=== PATIENT | female | born 1980 | race Caucasian/White ===

== ENCOUNTER → 2019-12-10 | Outpatient (CLI) | payer BC | LOC: MC.RAD 09:20 | DX: Z12.31 Encounter for screening mammogram for malignant neoplasm of breast (principal) ==

== ENCOUNTER → 2021-04-14 | Outpatient (CLI) | payer BC | LOC: MC.RAD 08:33 | DX: Z12.31 Encounter for screening mammogram for malignant neoplasm of breast (principal) ==

== ENCOUNTER → 2022-06-05 | Outpatient (CLI) | payer BC | LOC: MC.RAD 05-04 09:30 | DX: Z12.31 Encounter for screening mammogram for malignant neoplasm of breast (principal) ==